=== PATIENT | male | born 1970 | race Caucasian/White ===

== ENCOUNTER → 2019-04-13 | Outpatient (CLI) | payer BC ==
[2015-04-18 16:17] VITALS: BP 143/86
[~2019-04-13] MED LIST: MONT10TA80 PO
--- NOTE | 2019-04-14 08:46 | RAD ---
EXAM: Dual energy x-ray absorptiometry (DEXA). HISTORY: Post menopausal screening. TECHNIQUE: Dual energy x-ray absorptiometry of the lumbar spine and the right hip was performed. T-score of average bone mineral density based was calculated based on standard deviations above or below the expected young adult normal value. Diagnostic definitions were established by the World Health Organization. FINDINGS: The average bone mineral density associated with L1-L4 is 1.074 g/cm^2, corresponding with a T-score of -1.2. The average total bone mineral density associated with the right hip is 0.790 g/cm^2, corresponding with a T-score of -1.8. No comparison examinations are available. Refer to the worksheets for full detail. IMPRESSION: 1. Osteopenia. Average bone mineral density yields a T-score between -1.0 and -2.5. Fracture risk is increased. Electronically signed by: Vik Howell MD (04/14/2019 8:43 AM) [facility]
== END | disposition home or self-care (01) ==
LOC: DXRAD 15:15
PROVIDERS: ATTEND Physician Assistant
DX: M85.88 Other specified disorders of bone density and structure, other site (principal)
CPT/HCPCS: 77080

== ENCOUNTER → 2020-01-05 | Outpatient (CLI) | payer BC ==
[2015-04-18 16:17] VITALS: BP 143/86
--- NOTE | 2020-01-05 14:36 | RAD ---
4 views the right shoulder without comparison for indication unspecified. FINDINGS: There is no fracture or acute osseous abnormality identified. Mild degenerative changes of the acromioclavicular joint are noted. No radiopaque foreign bodies are seen. Glenohumeral joint is grossly unremarkable. IMPRESSION: 1. No acute osseous abnormality of the right shoulder. Electronically signed by: Flaco Grande MD (01/05/2020 2:33 PM) [id number]
== END | disposition home or self-care (01) ==
LOC: DXRAD 14:02
PROVIDERS: ATTEND Orthopaedic Surgery
DX: M19.011 Primary osteoarthritis, right shoulder (principal)
CPT/HCPCS: 73030

== ENCOUNTER 2020-08-12 13:18 | Emergency (ER) | payer BC ==
[~2020-08-12] VITALS: Ht 185.4 cm; Wt 82.4 kg
[2020-08-12 13:20] VITALS: BP 137/77
--- NOTE | 2020-08-12 13:24 | PHYS DOC ---
Past History Past Medical History: Asthma (HÉCTOR CATES APRN) Past Surgical History: Other (HÉCTOR CATES APRN) Alcohol Use: Rarely Drug Use: None (HÉCTOR CATES APRN) Adult General Chief Complaint Chief Complaint: CHEST PAIN HPI HPI Patient is a 49-year-old male presents to the emergency department reporting a chest burning feeling that has been happening intermittently since he received his mood during a Covid vaccine on July 05. Patient reports lying in bed on July 07 and feeling his heart beating fast and hard. Patient denies any chest pain at that time. Patient states he seen his primary care doctor who did an EKG stating the EKG looked fine, did not do any other investigation, and recommended cardiology follow-up but he has not done so yet. Patient states he had his second COVID-19 vaccination from [facility] on August 02, stated 2 days later again while laying in bed he felt his heart beating very fast and hard stating it felt like someone hit him in the chest with a sledgehammer however state "I never really had a chest pain it just felt like my heart was beating very hard ". Patient states that he was briskly walking on the treadmill today for approximately 1 mile when he noticed some tingling and numbness to his left and right arm, patient states he has problems with his neck and often has these sensations. Patient states he seen his primary care provider 2 days ago for chest burning sensation. Again was told he would need a cardiology follow-up. Patient states today while eating lunch at approximately noon he felt his heart racing fast once again but has resolved. Patient states he has had no chest pain or chest discomfort while doing strenuous physical activity, only notices this while he is laying flat in bed. Patient states approximately a week to 10 days ago he was lying in bed and noticed his heart racing and beating hard, felt as if the lights went down for only a second and came back on again. Patient denies any chest pain or chest discomfort or shortness of breath or nausea at this time. Patient denies recent fever or chills, visual disturbances, patient denies dizziness, denies urinary tract infection type signs and symptoms, denies swelling to his extremities, denies increased thirst or increased urination. Patient states he has a history of hypoglycemic episodes, states he takes no medications at home at this time, states he takes Singulair during the summer months when he has seasonal allergies, states he had a surgical history of left knee repair several years ago. Reports a allergy to sulfa medications. Patient reports he is curious if his symptoms are anxiety or panic related. Patient does not have a history of anxiety or panic attacks. Patient reports being a former cigarette smoker, quit in 2005, reports chewing and occasional Nicorette gum, drinks socially, denies illicit drug use. (HÉCTOR CATES APRN) Review of Systems Review of Systems 14 body systems of review of systems have been reviewed. See HPI for pertinent positives and negative responses, otherwise all other systems are negative, nonpertinent or noncontributory. (HÉCTOR CATES APRN) Allergies Allergies Allergies Coded Allergies Type Severity Reaction Last Updated Verified Sulfa (Sulfonamide Antibiotics) Allergy Severe Hives 04/18/15 No (HÉCTOR CATES APRN) Physical Exam Physical Exam Constitutional: Well developed, well nourished, no acute distress, non-toxic appearance. 49-year-old male in no apparent distress. HENT: Normocephalic, atraumatic, bilateral external ears normal, oropharynx moist, no oral exudates, nose normal. Oropharynx moist, pink, no infectious process appreciated, no lymphadenopathy of the head or neck. No drooling, no trismus appreciated. Eyes: PERRLA, EOMI, conjunctiva normal, no discharge. Neck: Normal range of motion, no tenderness, supple, no stridor. No nuchal rigidity, no C-spine spinal tenderness, no meningismus signs. Cardiovascular:Heart rate regular rhythm, heart sounds S1-S2 to auscultation for Lungs & Thorax: Bilateral breath sounds clear to auscultation all lung cox, no adventitious lung sounds appreciated. No pain to palpation of the thorax. Abdomen: Bowel sounds normal, soft, no tenderness, no masses, no pulsatile masses. Skin: Warm, dry, no erythema, no rash. Back: No tenderness, no CVA tenderness. Extremities: No tenderness, no cyanosis, no clubbing, ROM intact, no edema. Distal cap refill less than 2 seconds, +2/4 pulses. No decreased sensation of the lower extremities. Moves all extremities well. Neurologic: Alert and oriented X 3, normal motor function, normal sensory function, no focal deficits noted. Psychologic: Affect normal, judgement normal, mood normal. (HÉCTOR CATES APRN) EKG EKG EKG performed at 1322 by house respiratory therapy staff, shows normal sinus rhythm without other ectopy heart rate 90 bpm, NM interval 0.166, QTc interval 0.402, no acute STEMI, no ACS, no acute ischemia appreciated, EKG interpreted by ED attending physician Dr. Benton. (HÉCTOR CATES APRN) Radiology/Procedures Radiology/Procedures PATIENT: LUIGI APODACA TACCOUNT: [id number] : 1970 LOCATION: ER AGE: 49 SEX: M EXAM STATUS: PRE ER ORD. PHYSICIAN: HÉCTOR CATES APRN REASON: CHEST PAIN PROCEDURE: CHEST PA & LATERAL XR CHEST 2V History: Reason: CHEST PAIN / Spl. Instructions: / History: Comparison: None. Findings: Ill-defined right basilar opacity. No pleural effusion. No pneumothorax. Normal heart size. Impression: 1. Ill-defined right basilar opacity, may represent atelectasis or developing infiltrate. If persistent clinical concern, recommend follow-up. Electronically signed by: Mario Acosta DO (08/12/2020 2:08 PM) [facility] DICTATED AND SIGNED BY: MARIO ACOSTA DO DATE: 08/12/20 1407 CC: HÉCTOR CATES APRN; RADHA BENTON DO; MARCELLE ELAINE PA ~MTH0 0 (HÉCTOR CATES APRN) Heart Score C/O Chest Pain: Yes HEART Score for Chest Pain: HEART Score for Chest Pain Response (Comments) Value History Slighlty/Non-Suspicious 0 ECG Normal 0 Age >45 - < 65 1 Risk Factors No Risk Factors 0 Troponin < Normal Limit 0 Total 1 Risk Factors: Risk Factors: DM, Current or recent (<one month) smoker, HTN, HLP, family history of CAD, obesity. Risk Scores: Risk Factors: DM, Current or recent (<one month) smoker, HTN, HLP, family history of CAD, obesity. (HÉCTOR CATES APRN) Course & Med Decision Making Course & Med Decision Making Pertinent Labs and Imaging studies reviewed. (See chart for details) 49-year-old male, vital signs reviewed, presents to the emergency department concerning chest burning sensations intermittently since receiving COVID-19 vaccination on July 05. Physical examination was unremarkable, related to HPI and presentation will initiate cardiorespiratory work-up. Patient's HEART score equals 1. EKG unremarkable, cardiac enzymes negative, chest x-ray revealed atelectasis versus infiltrate of right basilar opacity ill- defined, reviewed chest x-ray and report with ED attending Dr. Benton who recommended patient follow-up with primary care on Friday. Reevaluation of the patient, the patient continues to be in no pain or discomfort, had no further sensations of chest burning or chest palpitations while in the ED today. Patient remains nontoxic in appearance, discussed with patient findings in the ED today, gave strict recommended follow-up to see his PCP on Friday as his PCP has suggested cardiology follow-up. Recommended to patient that he get referral to see cardiology for further work-up of his chest burning sensations. Discussed chest pain of unknown etiology, there may be a anxiety or panic component to the symptoms, there may also be a cardiac conduction component to the symptoms, however no EKG abnormalities noted during EKG monitoring of patient. Also patient had no symptoms while his ED work-up was in process. Patient gave verbal understanding of discharge instructions, strict PCP follow- up on Friday, return to ER precautions and concerns, was discharged home without incident. (HÉCTOR CATES APRN) Course & Med Decision Making I oversaw on the above date of service of this patient and discussed the care with the ANALYTICS MANAGER. I agree with the findings, plan of care, and disposition as documented. Electronically signed, Radha Benton DO (RADHA BENTON DO) [place] Disclaimer Dragon Disclaimer This electronic medical record was generated, in whole or in part, using a voice recognition dictation system. (HÉCTOR CATES APRN) Departure Departure: Impression: Primary Impression: Chest pain of unknown etiology Disposition: 01 DC HOME SELF CARE/HOMELESS Condition: GOOD Referrals: MARCELLE ELAINE (PCP) Patient Instructions: Chest Pain (Nonspecific) Additional Instructions: You are seen today in the emergency department for chest discomfort, and extensive cardiorespiratory work-up was performed, there were no concerning find ings on your EKG, chest x-ray, or lab work. I encourage you to follow-up with your primary care provider on Friday for referral to see cardiology for further investigation of these sensations. Please return to the emergency department for worsening symptoms or other concerns. EMERGENCY DEPARTMENT GENERAL DISCHARGE INSTRUCTIONS Thank you for coming to [facility] (ED) today and trusting us with you care. We trust that you had a positivie experience in our Emergency Department. If you wish to speak to the department management, you may call the director at [phone]. YOUR FOLLOW UP INSTRUCTIONS ARE FOLLOWS: 1. Do you have a private Doctor? If you do not have a private doctor, please ask for a resource list of physicians or clinics that may be able to assist you with follow up care. 2. The Emergency Physician has interpreted your x-rays. The X-Ray specialist will also review them. If there is a change in the findings, you will be notified in 48 hours when at all possible. 3. A lab test or culture has been done, your results will be reviewed and you will be notified if you need a change in treatment. ADDITIONAL INSTRUCTIONS AND INFORMATION: 1. Your care today has been supervised by a physician who is specially trained in emergency care. Many problems require more than one evaluation for a complete diagnosis and treatment. We recommend that you schedule your follow up appointment as recommended to ensure complete treatment of you illness or injury. If you are unable to obtain follow up care and continue to have a problem, or if your condition worsens, we recommend that you return to the ED. 2. We are not able to safely determine your condition over the phone nor are we able to give sound medical advice over the phone. For these safety reasons, if you call for medical advice we will ask you to come to the ED for further evaluation. 3. If you have any questions regarding these discharge instructions please call the ED at [phone]. SAFETY INFORMATION: In the interest of safety, wellness, and injury prevention; we encourage you to wear your sealbelt, if you smoke; quite smoking, and we encourage family to use a protective helmet for bicycling and other sporting events that present an increased risk for head injury. IF YOUR SYMPTOMS WORSEN OR NEW SYMPTOMS DEVELOP, OR YOU HAVE CONCERNS ABOUT YOUR CONDITION; OR IF YOUR CONDITION WORSENS WHILE YOU ARE WAITING FOR YOUR FOLLOW UP APPOINTMENT; EITHER CONTACT YOUR PRIMARY CARE DOCTOR, THE PHYSICIAN WHOSE NAME AND NUMBER YOU WERE GIVEN, OR RETURN TO THE ED IMMEDIATELY. HÉCTOR CATES APRN Aug 12, 2020 13:24 RADHA BENTON DO Aug 13, 2020 06:18
[2020-08-12] MEDS ORDERED: ASPIRIN CHEWABLE 81 MG TABLET. PO ONE (13:45)
[2020-08-12 13:50] LABS: ANION GAP 6 (6-14); BLOOD UREA NITROGEN 19 mg/dL (8-26); BUN/CREATININE RATIO 19 (6-20); CALCIUM 9.5 mg/dL (8.5-10.1); CARBON DIOXIDE 31 mmol/L (21-32); CHLORIDE 105 mmol/L (98-107); GFR 79.4; GLUCOSE 123 mg/dL (70-99); POTASSIUM 4.2 mmol/L (3.5-5.1); SODIUM 142 mmol/L (136-145)
[2020-08-12 13:52] LABS: BASO # 0.1 x10^3/uL (0.0-0.2); BASO % 1 % (0-3); EOS # 0.2 x10^3/uL (0.0-0.7); EOS % 2 % (0-3); HEMATOCRIT 41.1 % (39.0-53.0); HEMOGLOBIN 13.7 g/dL (13.0-17.5); LYMPH # 1.8 x10^3/uL (1.0-4.8); LYMPH % 28 % (24-48); MEAN CORPUSCULAR HEMOGLOBIN 30 pg (25-35); MEAN CORPUSCULAR HGB CONC 33 g/dL (31-37); MEAN CORPUSCULAR VOLUME 89 fL (79-100); MONO # 0.4 x10^3/uL (0.0-1.1); MONO % 6 % (0-9); NEUT # 4.3 x10^3uL (1.8-7.7); NEUT % 63 % (31-73); PLATELET COUNT 353 x10^3/uL (140-400); RED CELL DISTRIBUTION WIDTH 12.8 % (11.5-14.5); WHITE BLOOD COUNT 6.7 x10^3/uL (4.0-11.0)
[2020-08-12 14:05] LABS: ALBUMIN 3.8 g/dL (3.4-5.0); ALBUMIN/GLOBULIN RATIO 1.3 (1.0-1.7); ALK PHOS 89 U/L (46-116); ALT (SGPT) 53 U/L (16-63); AST (SGOT) 18 U/L (15-37); DIRECT BILIRUBIN 0.1 mg/dL (0.0-0.2); LIPASE 128 U/L (73-393); MAGNESIUM 1.9 mg/dL (1.8-2.4); TOTAL BILIRUBIN 0.4 mg/dL (0.2-1.0); TOTAL PROTEIN 6.8 g/dL (6.4-8.2)
--- NOTE | 2020-08-12 14:10 | RAD ---
XR CHEST 2V History: Reason: CHEST PAIN / Spl. Instructions: / History: Comparison: None. Findings: Ill-defined right basilar opacity. No pleural effusion. No pneumothorax. Normal heart size. Impression: 1. Ill-defined right basilar opacity, may represent atelectasis or developing infiltrate. If persist ent clinical concern, recommend follow-up. Electronically signed by: Mario Acosta DO (08/12/2020 2:08 PM) [facility]
--- NOTE | 2020-08-12 14:34 | EKG ---
[address] [address] Test Date: 2020-08-12 Test Time: 13:22:55 Pat Name: LUIGI APODACA Department: Room: Gender: M Heavy Repairer: JOÃO : 1970 Requested By: RADHA BENTON Order Number: [id number] Reading MD: Measurements Intervals [place] Rate: 90 P: 64 WI: 166 QRS: 62 QRSD: 80 T: 46 QT: 326 QTc: 402 Interpretive Statements SINUS RHYTHM NORMAL ECG RI6.02 No previous ECG available for comparison
== END 2020-08-12 14:44 | disposition home or self-care (01) ==
LOC: ER 13:18
DX: R07.89 Other chest pain (principal); R00.0 Tachycardia, unspecified; J45.909 Unspecified asthma, uncomplicated; Z88.2 Allergy status to sulfonamides
CPT/HCPCS: 36415; 71046; 80053; 80076; 82553; 83690; 83735; 83880; 84443; 84484; 85025; 85379; 85610; 85730; 93005; 99285